=== PATIENT | male | born 1975 | race Caucasian/White ===

== ENCOUNTER 2017-09-29 02:03 | Emergency (ER) | payer OTHER, MEDICAID, SELFPAY ==
[2017-09-29 02:28] VITALS: BP 159/97; PULSE 87; RESP 34; TEMP 36.3; O2SAT 96; BMI 27.9
[2017-09-29 02:44] LABS: Bacteria Urine None Seen
[2017-09-29] MEDS: KETOROLAC 60 MG/2 ML VIAL 30 MG IV (02:57)
[2017-09-29] MEDS: SODIUM CHLORIDE 0.9% 1,000 ML 1000 ML IV (02:58)
[2017-09-29] MEDS: ONDANSETRON 4 MG/2 ML INJ IV (02:58)
[2017-09-29 03:16] LABS: Add Manual Diff / Slide Review NO; Basophils Percent Auto 0.5 % (0-2); Eosinophils Percent Auto 0.1 % (2-4); Hematocrit 47.7 % (41-53); Hemoglobin 16.6 g/dL (13.5-17.5); Mean Corpuscular HGB Conc 34.7 % (30-36); Mean Corpuscular Hemoglobin 31.4 PG (26-34); Mean Corpuscular Volume 90.3 fL (80-100); Neutrophils Absolute Auto 15000 /uL (3000-5900); Neutrophils Percent Auto 88.4 % (50-75); Platelet Count 317 X10^3/uL (150-400); Red Blood Cell Count 5.28 X10^6/uL (4.5-5.9)
[2017-09-29 03:17] LABS: Appearance Urine UA CLEAR; Bilirubin Urine UA NEGATIVE (NEGATIVE); Color Urine UA YELLOW; Glucose Urine UA NEGATIVE (Normal); Ketones Urine UA NEGATIVE (NEGATIVE); Leukocyte Esterase Urine UA NEGATIVE (NEGATIVE); Nitrite Urine UA Negative (Negative); Occult Blood Urine UA 3+ (Negative); Protein Urine UA NEGATIVE (Negative); Urobilinogen Urine UA 0.2 E.U./dL (0.2)
[2017-09-29 03:19] LABS: Culture Indicated Urine Cult Not Indicated; RBC Urine 5-10/HPF (0-5/HPF); Squamous Epithelial Cell Urine 0-1 /HPF; WBC Urine 0-1/HPF (0-5/HPF)
--- NOTE | 2017-09-29 03:26 | DI.CT.S_ITS ---
PROCEDURE: CT KIDNEY URETER BLADDER (KUB) INDICATIONS: left flank pain TECHNIQUE: Noncontrast 5 mm thick sections acquired from the diaphragms to the symphysis. 5 mm thick coronal and sagittal reformats were then performed. For radiation dose reduction, the following was used: automated exposure control, adjustment of mA and/or kV according to patient size. COMPARISON: [facility], CT, CT KUB, 12/11/2016, 4:26. FINDINGS: Preliminary report by [facility] shift lead radiology Image quality: Excellent. Lung bases: Lung bases are clear. Heart size is normal. Urinary system: Right kidney shows no stones or obstruction. Right ureter is normal in caliber throughout. The left kidney contains a 2 mm nonobstructing calculus in the lower pole collecting system. There is moderate left hydronephrosis and perinephric fat stranding. There is a 4 mm obstructing calculus in the left ureter at the ureterovesicular junction, attenuation 468. Other solid organs: Liver is normal in size. Gallbladder appears normal. Pancreas is normal in contours. Spleen is normal in size. No adrenal nodules. Peritoneum and bowel: Unenhanced small bowel loops demonstrate normal wall thickness and caliber. Normal appendix. There is considerable fecal loading in the proximal colon. No free fluid or air. Nodes and vessels: No retroperitoneal or mesenteric adenopathy by size criteria. Aorta and inferior vena cava are normal in caliber. Abdominal wall: Small fat filled supraumbilical hernia. Pelvis: No free pelvic fluid. No inguinal hernias or adenopathy. Prostate and seminal vesicles appear normal. Bones: No suspicious bony lesions. There is mild chronic appearing compression of T11 and indentation of the superior endplate of T12. Slight anterolisthesis L5-S1. Disc IMPRESSION: 1. Left hydronephrosis secondary to an obstructing calculus in the distal left ureter. Left nephrolithiasis and mild perinephric fat stranding. 2. Normal appearing right kidney and ureter. Urinary bladder is unremarkable. 3. Considerable fecal loading in the proximal colon, possible constipation. 4. Fat filled umbilical hernia. Dictated by: Paul Pagan M.D. on 09/29/2017 at 8:54 Approved by: Paul Pagna M.D. on 09/29/2017 at 9:06
[2017-09-29 03:31] LABS: Alanine Aminotransferase 26 IU/L (21-72); Albumin 4.5 g/dL (3.5-5.0); Albumin Globulin Ratio 1.4 (1.0-2.8); Alkaline Phosphatase 90 U/L (38-126); Aspartate Aminotransferase 27 IU/L (17-59); BUN Creatinine Ratio 16.7 (6-22); Bilirubin Total 0.6 mg/dL (0.2-1.3); Blood Urea Nitrogen 15 mg/dL (9-20); Calcium 9.4 mg/dL (8.4-10.2); Carbon Dioxide 22 mmol/L (22-32); Chloride 107 mmol/L (98-107); Estimated Glomerular Filt Rate > 60.0 mL/min (>60); Globulin 3.2 g/dL (1.7-4.1); Glucose 134 mg/dL (70-100); HEMOLYSIS < 15 (0-50); Lipase 47 U/L (23-300); Potassium 4.2 mmol/L (3.4-5.1); Sodium 140 mmol/L (137-145); Total Protein 7.7 g/dL (6.3-8.2)
[2017-09-29 03:54] VITALS: BP 143/88; PULSE 79; RESP 18; O2SAT 95
--- NOTE | 2017-09-29 04:29 | ED_ITS ---
HPI - Male Genitourinary General Chief complaint: Urogenital-Male Stated complaint: states peeing blood, pain Time Seen by Provider: 09/29/17 03:03 Source: patient Mode of arrival: ambulatory Limitations: no limitations History of Present Illness HPI Narrative: patient is a 42-year-old male who presents with left flank pain. He said it started yesterday when he noticed he was urinating blood. The pain comes and goes in waves radiating down to his testicle. He does have a history of previous kidney stones. This feels very similar. No fever. He has been nauseated no vomiting Onset (ago): day(s) (1) Duration: intermittent Radiation: left inguinal region Related Data Previous Rx's Medication Instructions Recorded ondansetron 4 mg PO Q6-8H PRN #10 tab 09/29/17 Allergies Allergy/AdvReac Type Severity Reaction Status Date / Time No Known Drug Allergies Allergy Verified 09/29/17 02:33 Review of Systems Review of Systems GENERAL: Denies chills, fatigue, malaise, fever, sweats, travel HEENT: Denies sinus pain, ear pain, sore throat, difficulty swallowing, neck pain RESPIRATORY: Denies dyspnea, cough, wheezing, hemoptysis, sputum. CARDIOVASCULAR: Denies chest pain, palpitations, orthopnea, edema GASTROINTESTINAL: + nausea Denies vomiting, abdominal pain, diarrhea, constipation, melena. : see HPI MUSCULOSKELETAL: Denies weakness, joint pain, or bony pain SKIN: No rash, no erythema, no pruritus NEUROLOGIC: Denies weakness, dizziness, headache, numbness, change in speech, confusion PSYCHIATRIC: No concerning psychosocial issues. 12 point review of systems is negative except for those stated above and HPI PFSH Medical History Chronic back pain (Acute) Kidney stones (Acute) Social History Smoking Status: Current every day smoker substance use type: painkillers Comment: patient is currently on Suboxone. 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 RESPIRATORY: Breath sounds equal bilaterally, no wheezes rales or rhonchi. ABDOMEN: Soft, nontender. Normoactive bowel sounds all 4 quadrants. No guarding or rebound. : left CVA tenderness EXTREMITIES: Normal range of motion, no clubbing or edema. Neurovascularly intact NEUROLOGICAL: Alert and oriented x4.Normal gait and speech. Cranial nerves II through XII grossly intact. [ SKIN: Warm, dry, no laceration, no petechiae, no rashes or lesions. Course Orders Ordered: ED Orders 09/29/17 02:42 Urinalysis and Microscopic Stat 09/29/17 03:06 Complete Blood Count AUTO DIFF Stat Comprehensive Metabolic Panel Stat Lipase Stat 09/29/17 03:26 CT kidney ureter bladder (KUB) Stat Discontinued Medications Sodium Chloride (Normal Saline 0.9%) 1,000 mls @ 1,000 mls/hr IV CONT [place] Last Infusion: 09/29/17 04:42 Dose: 0 mls/hr Admin: 09/29/17 02:58 Dose: 1,000 mls/hr Ketorolac Tromethamine (Toradol) 30 mg IV NOW ONE Stop: 09/29/17 02:55 Last Admin: 09/29/17 02:57 Dose: 30 mg Ondansetron HCl (Zofran) 4 mg IV NOW ONE Stop: 09/29/17 02:55 Last Admin: 09/29/17 02:58 Dose: 4 mg Ondansetron HCl (Zofran Odt Prepack) 1 bottle MISC SEEINSTR ONE Stop: 09/29/17 04:32 Last Admin: 09/29/17 04:42 Dose: 1 bottle Vital Signs - 8 hr 09/29/17 02:28 09/29/17 03:54 09/29/17 04:57 Temperature 97.4 F L 98.8 F Pulse Rate 87 79 81 Respiratory Rate 34 H 18 16 Blood Pressure 159/97 H 136/83 H Blood Pressure [Right Arm] 143/88 H Pulse Oximetry 96 95 95 MDM - Male Genitourinary Lab Data Attestation: I reviewed the patient's lab results. Result diagrams: 09/29/17 03:06 09/29/17 03:06 Lab Results 09/29/17 09/29/17 09/29/17 Range/Units 02:42 03:06 03:06 WBC 17.0 H (4.5-11.0) X10^3/uL RBC 5.28 (4.5-5.9) X10^6/uL Hgb 16.6 (13.5-17.5) g/dL Hct 47.7 (41-53) % MCV 90.3 (80-100) fL MCH 31.4 (26-34) PG MCHC 34.7 (30-36) % RDW 13.0 (11.6-14.8) % Plt Count 317 (150-400) X10^3/uL Neut % (Auto) 88.4 H (50-75) % Lymph % (Auto) 5.0 L (25-40) % Guthrie % (Auto) 6.0 (3-14) % Eos % (Auto) 0.1 L (2-4) % Baso % (Auto) 0.5 (0-2) % Neut # (Auto) 22366 H (8060-2821) /uL Sodium 140 (137-145) mmol/L Potassium 4.2 (3.4-5.1) mmol/L Chloride 107 (98-107) mmol/L Carbon Dioxide 22 (22-32) mmol/L BUN 15 (9-20) mg/dL Creatinine 0.90 (0.66-1.25) mg/dL Estimated GFR > 60.0 (>60) mL/min BUN/Creatinine Ratio 16.7 (6-22) Glucose 134 H (70-100) mg/dL Calcium 9.4 (8.4-10.2) mg/dL Total Bilirubin 0.6 (0.2-1.3) mg/dL AST 27 (17-59) IU/L ALT 26 (21-72) IU/L Alkaline Phosphatase 90 (38-126) U/L Total Protein 7.7 (6.3-8.2) g/dL Albumin 4.5 (3.5-5.0) g/dL Globulin 3.2 (1.7-4.1) g/dL Albumin/Globulin Ratio 1.4 (1.0-2.8) Lipase 47 (23-300) U/L Urine Color Yellow Urine Appearance Clear Urine pH 7.0 (4.5-8.0) Ur Specific Stites 1.020 (1.000-1.035) Urine Protein Negative (Negative) Urine Glucose (UA) Negative (Normal) g/dL Urine Ketones Negative (NEGATIVE) Urine Occult Blood 3+ H (Negative) Urine Nitrate Negative (Negative) Urine Bilirubin Negative (NEGATIVE) Urine Urobilinogen 0.2 (0.2) E.U./dL Ur Leukocyte Esterase Negative (NEGATIVE) Urine RBC 5-10/hpf H (0-5/HPF) Urine WBC 0-1/hpf (0-5/HPF) Ur Squamous Epith Cells 0-1 /hpf Urine Bacteria None seen (None) Ur Culture Indicated? Cult not indicated Micro UA Comment Not Reportable Imaging Data CT KUB: Radiologist's impression: account support analyst report: Mild moderately obstructing 2.8 mm distal left ureteral stone. Mild left nephrolithiasis. Proximal fecal retention. MDM Narrative Medical decision making narrative: patient's pain is much improved after Toradol. He does take Suboxone. No narcotics will be given. Discharge Plan Departure Patient Disposition: Home, Self-Care Clinical Impression: Kidney stone on left side Discharge Date/Time: 09/29/17 05:02 Interventions: ED Discharge Assessment Last Done: 09/29/17 04:57 Instructions: DI for Kidney Stones Activity Restrictions/Additional Instructions: *Increase fluid intake *Call urology office tomorrow, to schedule follow-up appointment. Strain urine, try to catch stone -If you should have fever, or pain is uncontrolled with medication at home or any other concerning symptoms return to ER for further evaluation MEDICATIONS Take Motrin 800 mg every 8 hours as needed for pain Take Zofran every 4-6 hours if needed for nausea Prescriptions: New ondansetron 4 mg tablet,disintegrating 4 mg PO Q6-8H PRN (Reason: nausea and vomiting) Qty: 10 RF: 0 Referrals: [facility] [Provider Group] [place] [Primary Care Provider] -
[2017-09-29] MEDS: ONDANSETRON 4 MG ODT PREPACK 1 BOTTLE MISC (04:42)
[2017-09-29 04:57] VITALS: BP 136/83; PULSE 81; RESP 16; TEMP 37.1; O2SAT 95
== END 2017-09-29 05:02 | disposition home or self-care (01) ==
PROVIDERS: Emergency Provider Emergency Medicine; PCP Hospitalist
DX: N20.0 Calculus of kidney (principal)
CPT/HCPCS: 36415; 36591; 74176; 80053; 81001; 83690; 85025; 96361; 96374; 96375; 99283; 99284; J1885; J2405